=== PATIENT | female | born 1985 | race Caucasian/White ===

== ENCOUNTER 2017-08-09 23:49 | Emergency (ER) | payer SELFPAY ==
[~2017-08-09] VITALS: Ht 162.6 cm; Wt 74.8 kg
[2017-08-09 23:53] VITALS: BP 134/90
--- NOTE | 2017-08-09 23:57 | NUR ---
TO LOBBY, A/W YASMIN WATT NOTED
--- NOTE | 2017-08-10 02:33 | NUR ---
TO ER CHAIR Law
--- NOTE | 2017-08-10 02:40 | NUR ---
PT BIBA FOR RASH STARTING ON FACE AND PROGRESSED OVER CHEST. SKIN IS WARM, DRY AND INTACT. SKIN IS REDDENED,RAISED, DRY, AND FLAKY. PT DENIES PAIN, ITCHING, OR SOB AT THIS TIME. PT DENIES COMING INTO CONTACT W/ ANY NEW ITEMS. PT STATES SHE HAS HAD RASH LIKE THIS BEFORE BUT NOT BAD WHEN SHE GETS DERMATITIS FLARES. PT IS ALSO C/O OF PAIN TO LEFT EAR 10/10, SHARP, NON RADITING. PT STATES SHE TOOK TYLENOL AT HOME AT 5PM W/ MINIMAL RELIEF.
[2017-08-10] MEDS ORDERED: methylPREDNISolone SS 125 MG in WATER STERILE 2 ML IM ONE (02:50)
[2017-08-10] MEDS ORDERED: FAMOTIDINE 20 MG TAB PO ONE (02:50)
[2017-08-10] MEDS ORDERED: ACETAMINOPHEN/CODEINE 300/30MG 1 TAB PO ONE (03:10)
--- NOTE | 2017-08-10 03:20 | NUR ---
PT C/O PAIN TO INJECTION SITE, PROVIDED HEATING PACK TO APPLY TO AREA, NO REDNESS NOTED TO SITE .
[2017-08-10 03:38] VITALS: BP 133/77
--- NOTE | 2017-08-10 03:39 | NUR ---
Patient discharged with v/s stable. Written and verbal after care instructions given and explained. Patient alert, oriented and verbalized understanding of instructions. Ambulatory with steady gait. All questions addressed prior to discharge. ID band removed. Patient advised to follow up with PMD. Rx of CIPROFLOXACIN, MEDROL, TYLENOL W/ CODEINE given. Patient educated on indication of medication including possible reaction and side effects. Opportunity to ask questions provided and answered.
== END 2017-08-10 03:38 | disposition home or self-care (01) ==
LOC: MED 23:49 → EDBD 23:49 → MED 08-10 03:38
DX: L50.0 Allergic urticaria (principal); H60.91 Unspecified otitis externa, right ear; F17.210 Nicotine dependence, cigarettes, uncomplicated; Z88.8 Allergy status to other drugs, medicaments and biological substances
CPT/HCPCS: 96372; 99284; J2930; Q0163

== ENCOUNTER 2017-11-27 20:38 | Inpatient (IN) | payer MEDICAID ==
[~2017-11-27] VITALS: Ht 165.1 cm; Wt 92.5 kg
[2017-11-27 20:51] VITALS: BP 152/101
--- NOTE | 2017-11-27 20:56 | NUR ---
GAVE REPORT TO LOUISE OLMSTEAD
--- NOTE | 2017-11-27 20:56 | NUR ---
PT TAKEN TO CHAIR E
--- NOTE | 2017-11-27 20:58 | NUR ---
32/F BIB SELF C/O SUICIDAL IDEATION X6/7 MONTHS. PATIENT STATES SHE HAS BEEN HAVING THOUGHTS FOR SEVERAL MONTHS AND WANTS TO GO TO SLEEP AND NEVER WAKE UP. PATIENT STATES TAKING NO MEDICATION TODAY, BUT PREVIOUSLY ON A DAILY BASIS TAKES ZQUIL AND BENADRYL ON SEPARATE OCCASSIONS. PATIENT STATES LAST NIGHT SHE TOOK 5 ZQUILS IN HOPES TO END HER LIFE. PATIENT STATES SHE USED TO SEE A THERAPIST AND THE LAST TIME WAS IN 2017. PATIENT STATES HER PARENTS TRIED TO HELP HER GET ADMITTED TO A FACILITY IN THE PAST, BUT THE PATIENT STATES SHE REFUSED. PATIENT STATES SHE HAS NO MEANS OF SUPPORT, AND LIVES WITH A ROOMMATE WHO SHE NEVER SEES. PATIENT STATES SHE HAS THOUGHTS ALL DAY AND ALL NIGHT, WITH WORSENING THOUGHTS AT NIGHT. PATIENT STATES SHE GETS NERVOUS TO BE ALONE. PATIENT IS NOT IN DISTRESS AT THIS TIME. PATIENT SITTING QUIETLY IN CHAIR AND APPEARS NERVOUS AND RESTLESS. WILL CONTINUE TO MONITOR. ER MD MADE AWARE OF PATIENT STATUS.
--- NOTE | 2017-11-27 22:34 | NUR ---
PT MOVED TO BED 8
--- NOTE | 2017-11-27 22:37 | NUR ---
[place] [employer] AT BEDSIDE.
--- NOTE | 2017-11-27 22:40 | NUR ---
PATIENT HAS BEEN PLACED ON A 5150 HOLD PER OFFICER HERNANDEZ WITH [place]. PATIENT HAS BEEN PUT IN A GOWN WITH BELONGINGS REMOVED AND SENT WITH SECURITY. BRIAN [facility] AT BEDSIDE.
[2017-11-27 23:05] LABS: APPEARANCE,URINE CLEAR (CLEAR); BILIRUBIN,URINE NEGATIVE (NEGATIVE); BLOOD, URINE NEGATIVE (NEGATIVE); COLOR,URINE YELLOW (YELLOW); LEUKOCYTE ESTERASE ,URINE NEGATIVE (NEGATIVE); NITRITE, URINE NEGATIVE (NEGATIVE); UGLUCOSE NEGATIVE (NEGATIVE)
[2017-11-27 23:08] LABS: BARBITURATE, URINE NEG. ng/ml (NEG <=200); BENZODIAZEPINE, URINE NEG. ng/mL (NEG <=200); CANNABINOID, URINE NEG. ng/mL (NEG <=50); COCAINE, URINE POS. ng/mL (NEG <=300); OPIATE, URINE NEG. ng/mL (NEG <=2000); PHENCYCLIDINE SCREEN,URINE NEG. ng/mL (NEG <=25)
[2017-11-27 23:19] LABS: BASOPHILS # (AUTO) 0.1 K/uL (0.00-0.22); BASOPHILS % (AUTO) 0.5 % (0.0-2.0); EOSINOPHILS # (AUTO) 0.1 K/uL (0-0.4); EOSINOPHILS % (AUTO) 0.7 % (0.0-4.0); HEMOGLOBIN 15.3 g/dL (12.0-16.0); LYMPHOCYTES # (AUTO) 2.2 K/uL (2.5-16.5); MEAN CORPUSCULAR HEMOGLOBIN 32 pg (27-31); MEAN CORPUSCULAR HGB CONC 33 g/dL (33-37); MEAN CORPUSCULAR VOLUME 95.4 fL (80-94); MONOCYTES # (AUTO) 0.6 K/uL (0.8-1.0); MONOCYTES % (AUTO) 4.9 % (1.7-9.3); NEUTROPHILS # (AUTO) 9.4 K/uL (1.8-7.7); NEUTROPHILS % (AUTO) 75.9 % (42.2-75.2); PLATELET COUNT (AUTO) 391 K/uL (140-450); RED BLOOD CELL COUNT(AUTO) 4.83 MIL/uL (4.20-5.40); RED CELL DISTRIBUTION WIDTH 14.2 % (11.6-13.7); WHITE BLOOD COUNT (AUTO) 12.4 K/uL (4.8-10.8)
[2017-11-27 23:28] LABS: CARBON DIOXIDE 21.7 mmol/L (21-32); CREATININE 0.9 mg/dL (0.6-1.3); POTASSIUM 3.7 mmol/L (3.5-5.1)
[2017-11-27 23:31] LABS: SALICYLATE 4.2 mg/dL (2.8-20.0)
[2017-11-27 23:33] LABS: ALBUMIN 3.8 g/dL (3.4-5.0); TOTAL BILIRUBIN 0.3 mg/dL (0.0-1.0)
[2017-11-27 23:34] LABS: ACETAMINOPHEN < 0.5 ug/ml (10-30)
--- NOTE | 2017-11-28 00:34 | NUR ---
PATIENTS CONTINUING TO WAIT FOR MD [place]
--- NOTE | 2017-11-28 03:12 | NUR ---
Packet Faxed to the following facilities [facility], [facility], [facility], and [facility] , At this time there no beds available for placement,ER c.o.d. audit clerk made aware.
--- NOTE | 2017-11-28 03:23 | NUR ---
Patient appears to be resting comfortably in bed. Vital Signs within normal limits. Respirations even and unlabored.
[2017-11-28] MEDS ORDERED: ONDANSETRON 4 MG/2 ML VIAL IM/IVP PRN (03:50)
[2017-11-28] MEDS ORDERED: DOCUSATE SODIUM 100 MG GELCAP PO PRN (03:50)
[2017-11-28] MEDS ORDERED: HYDROcodone/APAP 7.5/325 MG 1 TAB PO PRN (03:50)
[2017-11-28] MEDS ORDERED: MORPHINE SULFATE 2 MG/ML SYR IVP PRN (03:50)
[2017-11-28] MEDS ORDERED: ACETAMINOPHEN 325 MG TAB PO PRN (03:50)
--- NOTE | 2017-11-28 04:15 | NUR ---
DR. CERRATO EVALUATING PATIENT
--- NOTE | 2017-11-28 04:30 | NUR ---
Pt transferred to Tele via .
--- NOTE | 2017-11-28 04:40 | NUR ---
PT ARRIVED AT UNIT VIA BED, PT AMBULATED TO BED, TOLERATED WELL, PT STABLE, NO DISTRESS NOTED, REPORT RECEIVED FROM ER NURSE MARY ELLEN OLMSTEAD, IV TO THE L HAND 20G SL, PATENT, INTACT, PT ON ROOM AIR NO SOB, INITIAL ASSESSMENT DONE, ALL SAFETY PRECAUTION MET, ORIENT PT TO ROOM, MRSA SWAB TAKEN, V/S TAKEN, WNL, PT RESTING ON BED, 1:1 SITTER AT BEDSIDE, WILL CONTINUE TO MONITOR.
[2017-11-28 04:46] VITALS: BP 132/95
--- NOTE | 2017-11-28 04:46 | NUR ---
Pt report given to DANIELLE OLMSTEAD. Transfer of care at this time.
[2017-11-28] MEDS: NACL 0.9% 1,000 ML IV SCH ×2 (05:17→20:30)
--- NOTE | 2017-11-28 05:17 | NUR ---
IVF STARTED, PT TOLERATED WELL, NO DISTRESS NOTED, 1:1 SITTER AT BEDSIDE, WILL CONTINUE TO MONITOR.
[2017-11-28] MEDS ORDERED: MUPIROCIN 2% OINT 22 GM TUBE TP SCH (06:00)
[2017-11-28] MEDS ORDERED: CHLORHEXADINE GLUC 2% CLOTH TP SCH (06:00)
--- NOTE | 2017-11-28 07:20 | NUR ---
ENDORSED PLAN OF CARE TO DAY SHIFT NURSE SALLY RN, PT STABLE, NO DISTRESS NOTED, 1:1 SITTER AT BEDSIDE
--- NOTE | 2017-11-28 07:21 | NUR ---
RECEIVED BEDSIDE REPORT FROM SIENE MAKER NURSE. PATIENT IS AWAKE, ALERT AND ORIENTEDX4. NO SIGNS OF DISTRESS ON ROOM AIR. SHE STATES SHE DOES NOT FEEL SUICIDAL SHE DID WHEN SHE FIRST CAME IN. SHE IS AMBULATORY. SKIN IS INTACT. TELE MONITOR IS IN PLACE. IV ON R WRIST 22G INFUSING NS AT 60ML/HR. IV IS CLEAN, DRY AND INTACT. 1:1 SITTER AT BEDSIDE. WILL CONTINUE TO MONITOR THE PATIENT. BED IN LOW POSITION.
--- NOTE | 2017-11-28 07:58 | NUR ---
DAY CARE TEACHER AT BEDSIDE.
[2017-11-28 08:00] VITALS: BP 116/70
[2017-11-28] MEDS: SERTRALINE 50 MG TAB PO SCH (08:09)
--- NOTE | 2017-11-28 08:09 | NUR ---
ADMINISTERED MEDS. PATIENT TOLERATED WELL. WILL CONTINUE TO MONITOR THE PATIENT.
[2017-11-28 08:29] LABS: CHOL/HDL RATIO 2.6 (1-4.5); MAGNESIUM 1.8 mg/dL (1.8-2.4); PHOSPHORUS 3.8 mg/dL (2.5-4.9)
[2017-11-28 08:44] LABS: PROTHROMBIN TIME 9.9 secs (10.8-13.4)
[2017-11-28 09:07] LABS: FREE T4 (FREE THYROXINE) 0.88 ng/dL (0.76-1.46); THYROID STIMULATING HORMONE 4.48 uIU/mL (0.34-3.74)
--- NOTE | 2017-11-28 09:20 | NUR ---
PATIENT HAS BEEN SCREENED AND CATEGORIZED LOW NUTRITION RISK. PATIENT WILL BE SEEN WITHIN 7 DAYS OF ADMISSION. 12/04/[address]
--- NOTE | 2017-11-28 09:48 | NUR ---
[facility]. Will call facilities to try and locate bed, there is currently no beds available.
--- NOTE | 2017-11-28 11:00 | NUR ---
PATIENT IS SLEEPING. NO SIGNS OF DISTRESS ON ROOM AIR. 1:1 SITTER. WILL CONTINUE TO MONITOR THE PATIENT.
[2017-11-28 12:00] VITALS: BP 123/77
--- NOTE | 2017-11-28 13:00 | NUR ---
PATIENT IS SLEEPING. NO SIGNS OF DISTRESS. 1:1 SITTER AT BEDSIDE
--- NOTE | 2017-11-28 15:00 | NUR ---
PATIENT AMBULATED THE RESTROOM SHE IS STEADY. BACK IN BED. 1:1 SITTER AT BEDSIDE.
[2017-11-28 16:00] VITALS: BP 125/78
--- NOTE | 2017-11-28 17:00 | NUR ---
PATIENT SITTING IN BED. NO SIGNS OF DISTRESS. 1:1 SITTER AT BED SIDE. WILL CONTINUE TO MONITOR THE PATIENT.
[2017-11-28 18:19] LABS: BASOPHILS # (AUTO) 0.1 K/uL (0.00-0.22); BASOPHILS % (AUTO) 0.7 % (0.0-2.0); EOSINOPHILS # (AUTO) 0.1 K/uL (0-0.4); EOSINOPHILS % (AUTO) 1.2 % (0.0-4.0); HEMATOCRIT 44.2 % (36-48); HEMOGLOBIN 14.5 g/dL (12.0-16.0); LYMPHOCYTES # (AUTO) 2.6 K/uL (2.5-16.5); MEAN CORPUSCULAR HEMOGLOBIN 32 pg (27-31); MEAN CORPUSCULAR HGB CONC 33 g/dL (33-37); MEAN CORPUSCULAR VOLUME 98.4 fL (80-94); MONOCYTES # (AUTO) 0.8 K/uL (0.8-1.0); MONOCYTES % (AUTO) 7.3 % (1.7-9.3); NEUTROPHILS # (AUTO) 7.2 K/uL (1.8-7.7); NEUTROPHILS % (AUTO) 66.8 % (42.2-75.2); PLATELET COUNT (AUTO) 382 K/uL (140-450); RED CELL DISTRIBUTION WIDTH 14.9 % (11.6-13.7); WHITE BLOOD COUNT (AUTO) 10.8 K/uL (4.8-10.8)
[2017-11-28 18:23] LABS: ANION GAP 23.2 (8-16); CARBON DIOXIDE 16.5 mmol/L (21-32); CREATININE 0.9 mg/dL (0.6-1.3); POTASSIUM 3.7 mmol/L (3.5-5.1)
--- NOTE | 2017-11-28 19:20 | NUR ---
GAVE BEDSIDE REPORT TO DISTRIBUTION CENTER ASSOCIATE NURSE. PATIENT IS IN STABLE CONDITION.
--- NOTE | 2017-11-28 19:22 | NUR ---
REPORT RECEIVED FROM AM NURSE. PT IN STABLE CONDITION. WILL CONTINUE TO MONITOR.
--- NOTE | 2017-11-28 20:30 | NUR ---
PM MEDS GIVEN. PT TOLERATED WELL. PT COMPLAINS OF PAIN AT THE IV SITE. IV SITE INFILTRATED. NOTIFIED AND APPROVED D/C OF THE IV. BOARD UPDATED. VS STABLE AND PT NOT IN ACUTE DISTRESS. WILL CONTINUE TO MONITOR.
--- NOTE | 2017-11-28 23:00 | NUR ---
PT SLEEPING IN BED BUT AROUSABLE. NOT IN ACUTE DISTRESS. WILL CONTINUE TO MONITOR.
[2017-11-29] VITALS: BP 136/78
--- NOTE | 2017-11-29 01:15 | NUR ---
PT AWAKE IN BED. ASKED ABOUT BELONGINGS. PT NO LONGER 5150. SECURITY CALLED AND PAGE BUT STILL NO ANSWER. AWAITING FOR SECURITY TO DROP OFF PT BELONGINGS.
--- NOTE | 2017-11-29 02:25 | NUR ---
PT ASKED FOR BELONGINGS AT 0100. SECURITY CALLED AND PAGED FOR HER BELONGING.
--- NOTE | 2017-11-29 04:45 | NUR ---
PT ASLEEP IN ROOM. NO SIGNS OF ACUTE DISTRESS. WILL CONTINUE TO MONITOR.
[2017-11-29 06:16] LABS: T4 (THYROXINE) 7.7 ug/dL (4.5-12.0)
[2017-11-29 06:52] LABS: BASOPHILS # (AUTO) 0.1 K/uL (0.00-0.22); BASOPHILS % (AUTO) 0.7 % (0.0-2.0); EOSINOPHILS # (AUTO) 0.2 K/uL (0-0.4); EOSINOPHILS % (AUTO) 2.2 % (0.0-4.0); HEMOGLOBIN 14.2 g/dL (12.0-16.0); LYMPHOCYTES # (AUTO) 2.3 K/uL (2.5-16.5); LYMPHOCYTES % (AUTO) 26.4 % (20.5-51.1); MEAN CORPUSCULAR HEMOGLOBIN 33 pg (27-31); MEAN CORPUSCULAR HGB CONC 34 g/dL (33-37); MEAN CORPUSCULAR VOLUME 96.4 fL (80-94); MONOCYTES # (AUTO) 0.6 K/uL (0.8-1.0); MONOCYTES % (AUTO) 6.6 % (1.7-9.3); NEUTROPHILS # (AUTO) 5.7 K/uL (1.8-7.7); NEUTROPHILS % (AUTO) 64.1 % (42.2-75.2); PLATELET COUNT (AUTO) 336 K/uL (140-450); RED BLOOD CELL COUNT(AUTO) 4.36 MIL/uL (4.20-5.40); RED CELL DISTRIBUTION WIDTH 13.8 % (11.6-13.7); WHITE BLOOD COUNT (AUTO) 8.9 K/uL (4.8-10.8)
[2017-11-29 07:12] LABS: CREATININE 0.9 mg/dL (0.6-1.3)
[2017-11-29 07:19] LABS: MAGNESIUM 1.9 mg/dL (1.8-2.4); PHOSPHORUS 3.8 mg/dL (2.5-4.9)
--- NOTE | 2017-11-29 07:20 | NUR ---
REPORT GIVEN TO AM NURSE. PT IN STABLE CONDITION.
--- NOTE | 2017-11-29 07:25 | NUR ---
RECEIVED PT FROM BLENDING TANK HELPER NURSERO, PT IS AWAKE AND LYING ON THE BED WITH NO PERIPHERAL LINE IN PLACE. SIDE RAILS ARE UP AND ACCORDING TO BLENDING TANK HELPER NURSE THE PT NO LONGER A 5150 CATEGORY. NO SIGN OF DISTRESS NOTED AND WILL CONTINUE TO MONITOR.
[2017-11-29 08:00] VITALS: BP 126/82
--- NOTE | 2017-11-29 08:05 | NUR ---
PT IS AWAKE AND LYING ON THE BED, VITAL SIGNS TAKEN AND IS STABLE. NO SIGN OF DISTRESS NOTED AND WILL MONITOR.
[2017-11-29] MEDS: SERTRALINE 50 MG TAB PO SCH (09:26)
--- NOTE | 2017-11-29 09:26 | NUR ---
PT IS AWAKE AND LYING ON THE BED, MEDICATIONS GIVEN AND PT TOLERATED IT. NO SIGN OF DISTRESS NOTED AND WILL CONTINUE TO MONITOR.
--- NOTE | 2017-11-29 10:45 | NUR ---
Project Landscape Architect Note: I met with patient at bedside to provide her with education on community resources for counseling/mental health/psychiatric programs. Patient accepted resources and stated she does not have any questions or concerns at this time.
--- NOTE | 2017-11-29 12:10 | NUR ---
PT IS ASLEEP LYING ON THE BED. NO SIGN OF DISTRESS NOTED. WILL CONTINUE TO MONITOR.
[2017-11-29] MEDS ORDERED: SERT-146 PO (12:12)
--- NOTE | 2017-11-29 13:04 | NUR ---
ACKNOWLEDGED A DISCHARGE ORDER PLACED FOR THE PT BY MADE AT 1247H, WILL FACILITATE DISCHARGE PROCESS.
--- NOTE | 2017-11-29 16:05 | NUR ---
DISCHARGED AND WALK THROUGH THE PT TO THE FRONT [facility], DISCHARGED INSTRUCTIONS GIVEN. ARM BANDS REMOVED AND PT IS STABLE AT THIS TIME.
== END 2017-11-29 16:05 | disposition home or self-care (01) | DRG 425 ==
LOC: MED 20:38 → MTU 11-28 03:50
PROVIDERS: ADMIT Student in an Organized Health Care Education/Training Program; ATTEND Student in an Organized Health Care Education/Training Program
DX: E87.1 Hypo-osmolality and hyponatremia (principal); R45.851 Suicidal ideations; F33.1 Major depressive disorder, recurrent, moderate; F14.10 Cocaine abuse, uncomplicated; R00.0 Tachycardia, unspecified; F43.9 Reaction to severe stress, unspecified; F10.10 Alcohol abuse, uncomplicated; Y90.9 Presence of alcohol in blood, level not specified; E02 Subclinical iodine-deficiency hypothyroidism; F17.210 Nicotine dependence, cigarettes, uncomplicated; D72.829 Elevated white blood cell count, unspecified; Z88.6 Allergy status to analgesic agent; Z71.51 Drug abuse counseling and surveillance of drug abuser
CPT/HCPCS: 36415; 71045; 80048; 80053; 80305; 81003; 81025; 82150; 83036; 83690; 83735; 83880; 84100; 84436; 84439; 84443; 84479; 85025; 85610; 85730; 87081; 93005; 99285; G0480; G0482; J7030; Q0092